=== PATIENT | female | born 1975 | race Caucasian/White ===

== ENCOUNTER 2020-02-02 13:35 | Outpatient (CLI) | payer BC, SELFPAY ==
--- NOTE | 2020-02-02 13:41 | US_ITS ---
WS: [id number] THYROID ULTRASOUND HISTORY: NONTOXIC GOITER COMPARISON: None available. Right lobe: 5.6 cm x 2.3 cm x 1.7 cm. Volume: 11.3 cm3. Mildly enlarged heterogeneous RIGHT thyroid. Very subtle ill-defined nodule in the mid gland measures 8 x 4 x 8 mm without increased vascularity. There are a few additional small cystic areas scattered throughout the gland. Left lobe: 5.7 cm x 1.9 cm x 1.7 cm. Volume: 9.6 cm3. Mildly enlarged heterogeneous gland. There is a complex cystic nodule in the inferior thyroid measuri ng 1.4 x 0.9 x 1.3 cm. There are low level echoes and a comet tail artifact suggesting this is a monique oid cyst. In the mid thyroid is a complex cystic nodule with septations measuring 1.5 x 1.0 x 1.4 cm. Isthmus: 0.3 cm. US/US thyroid [id number] IMPRESSION: 1. Bilateral thyroid nodules. Favor benign nodules. Recommend follow-up thyroi d ultrasound in 12 months.
== END 2020-02-02 13:36 | disposition home or self-care (01) ==
LOC: RAD 13:38
PROVIDERS: Family Provider Family Medicine; Visit Provider Family Medicine
DX: E04.9 Nontoxic goiter, unspecified (principal); E04.2 Nontoxic multinodular goiter
CPT/HCPCS: 76536

== ENCOUNTER 2020-03-12 13:06 | Outpatient (CLI) | payer BC, SELFPAY ==
--- NOTE | 2020-03-12 13:31 | XR_ITS ---
WS: [id number] RIGHT FOOT: 2 VIEW(S) TECHNIQUE: AP and lateral. HISTORY: INJURY OF RT GREAT TOE COMPARISON: None available. Nondisplaced fracture of the terminal tuft of the first toe. No extension to the joint space. Normal tarsal/metatarsal alignment. Diffuse soft tissue swelling is moderate around the first toe. XR/XR foot RT 2V [id number] IMPRESSION: Nondisplaced fracture terminal tuft first toe.
== END 2020-03-12 13:07 | disposition home or self-care (01) ==
LOC: RADWPI 13:09
PROVIDERS: Family Provider Family Medicine; PCP Family Medicine; Visit Provider Family Medicine
DX: S92.911A Unspecified fracture of right toe(s), initial encounter for closed fracture (principal); X58.XXXA Exposure to other specified factors, initial encounter
CPT/HCPCS: 73620

== ENCOUNTER → 2020-03-31 12:30 | Outpatient (BNVA) | payer BC, SELFPAY | PROVIDERS: Family Provider Family Medicine; PCP Family Medicine; Visit Provider Nurse Practitioner Family | DX: R30.0 Dysuria (principal); N30.90 Cystitis, unspecified without hematuria | CPT/HCPCS: 80053; 81001 ==

== ENCOUNTER → 2020-04-26 08:35 | Outpatient (BNVA) | payer BC, SELFPAY | PROVIDERS: Family Provider Family Medicine; PCP Family Medicine; Visit Provider Urology | DX: N30.90 Cystitis, unspecified without hematuria (principal); N30.20 Other chronic cystitis without hematuria | CPT/HCPCS: 81001 ==

== ENCOUNTER 2020-06-08 10:50 | Outpatient (CLI) | payer BC, SELFPAY ==
--- NOTE | 2020-06-08 10:59 | XR_ITS ---
WS: [id number] FOOT RIGHT TECHNIQUE: 2 views of the right foot CLINICAL INFORMATION: UNSPECIFIED INJURY OF RIGHT FOOT, INITIAL ENCOUNTER COMPARISON: March 12, 2020 FINDINGS: Normal anatomic alignment. Again seen is the nondisplaced healing/healed fracture involving the dista l tuft first toe. Evidence of interval healing since the prior examination. Small amount of soft tiss ue calcification. Plantar calcaneal spurring. XR/XR foot RT 2V [id number] IMPRESSION: 1. Healing/healed nondisplaced fracture distal tuft first toe. 2. No other significant changes.
== END 2020-06-08 10:51 | disposition home or self-care (01) ==
PROVIDERS: PCP Family Medicine; Visit Provider Family Medicine
DX: S92.911A Unspecified fracture of right toe(s), initial encounter for closed fracture (principal); X58.XXXA Exposure to other specified factors, initial encounter
CPT/HCPCS: 73620

== ENCOUNTER 2020-06-15 10:00 | Outpatient (CLI) | payer BC, SELFPAY ==
--- NOTE | 2020-06-15 10:05 | MM_ITS ---
WS: [id number] SCREENING DIGITAL MAMMOGRAM WITH CAD HISTORY: SCREENING COMPARISON: 06/06/2019 and 05/15/2018 Bilateral CC and MLO views submitted. Computer aided detection analyzed. Breast composition: The breasts are heterogeneously dense, which may obscure small masses. No suspici ous masses, microcalcifications or architectural distortion. MM/[place] [id number] IMPRESSION: BI-RADS: 1-Negative FOLLOW UP: 1 Year Follow-up
== END 2020-06-15 10:01 | disposition home or self-care (01) ==
LOC: RADSHAW 10:02
PROVIDERS: PCP Family Medicine; Visit Provider Family Medicine
DX: Z12.31 Encounter for screening mammogram for malignant neoplasm of breast (principal)
CPT/HCPCS: 77067